=== PATIENT | female | born 1985 | race African-American/Black ===

== ENCOUNTER 2020-01-08 18:04 | Emergency (ER) | payer OTHER ==
[~2020-01-08] VITALS: Ht 162.6 cm; Wt 66.0 kg
[2020-01-08] MEDS ORDERED: LIDOCAINE HCL 1% 20ML VIAL (Pyxis) INJ INFIL ONE (20:15)
[2020-01-08 21:07] VITALS: BP 121/74
== END 2020-01-08 21:07 | disposition home or self-care (01) ==
LOC: ER 18:23
DX: S61.412A Laceration without foreign body of left hand, initial encounter (principal); W26.0XXA Contact with knife, initial encounter; Y93.89 Activity, other specified; Y92.89 Other specified places as the place of occurrence of the external cause; Y99.8 Other external cause status
CPT/HCPCS: 12001; 99283; J3490; 99282